=== PATIENT | female | born 1990 ===

== ENCOUNTER 2021-11-12 09:13 | Outpatient (CLI) | payer OTHER | END 2021-11-12 10:27 | disposition home or self-care (01) | LOC: PRENATAL 09:13 | PROVIDERS: ATTEND Obstetrics & Gynecology Maternal & Fetal Medicine | DX: Z36.89 Encounter for other specified antenatal screening (principal); O36.80X1 Pregnancy with inconclusive fetal viability, fetus 1; Z3A.12 12 weeks gestation of pregnancy ==